=== PATIENT | female | born 1960 | race Caucasian/White ===

== ENCOUNTER 2024-07-10 14:19 | Outpatient (CLI) | payer OTHER, SELFPAY ==
--- NOTE | 2024-07-10 14:30 | MR_ITS ---
[address] [address] Phone:?[phone] Fax:?[phone] Referring Physician Information: Radha Stoll [address] [facility] [address] Phone:?[phone] Fax:?[phone] Patient:?Taryn Jimenez D.O.B:?1960 Sex:?Female Phone:?[phone] [facility] MRN:?[id number] Exam Date:?07/10/2024 EXAM: MRI of the RIGHT SHOULDER, without contrast CLINICAL INFORMATION: Female, 63 years old, with right shoulder pain. INDICATION: Evaluate for labral tear. PRIOR SURGERY: None reported. PLAIN FILMS: None available. COMPARISONS: No prior MRIs available. TECHNICAL INFORMATION: Using a 1.5T MR scanner and a localizing surface coil: coronal obliques: PD, T2, STIR sagittal obliques: PD, T2 axials: PD, T2 SEDATION: None CONTRAST: None FINDINGS: Bones: Proximal humerus: No fracture or marrow edema/pathology. No humeral Hill-Sachs or reverse Hill-Sachs lesion/impaction or contusion. Glenoid: No fracture or marrow edema/pathology. No osseous Bankart lesion. Rotator cuff and muscles/tendons: Supraspinatus: Mild-moderate infraspinatus tendinopathy with a 2.0 x 2.2 cm area of intermediate grade partial-thickness articular surface tearing. No full- thickness tear or muscle atrophy. Infraspinatus: No tendinopathy, tear or atrophy. Teres minor: No tendinopathy, tear or atrophy. Subscapularis: No tendinopathy, tear or atrophy. Deltoid: No strain or atrophy. Coracoacromial arch: Acromion morphology: The acromion has type II morphology. No discrete subacromial osseous spur or os acromiale. Acromiohumeral space: The acromiohumeral space measures 5.6 mm at its narrowest point (osseous distance). Coracohumeral space: The coracohumeral space is within normal limits. Acromioclavicular joint: Joint: Mild AC joint arthropathy, which encroaches upon the underlying supraspinatus (coronal T2 series 7 image 12). Ligaments: Coracoclavicular ligaments are intact. Bursae: Subacromial-subdeltoid: Mild-moderate subacromial-subdeltoid bursal thickening/edema. Subcoracoid: No convincing subcoracoid bursal thickening/bursitis. Biceps tendon: The long head of the biceps tendon is present within the bicipital groove. The intra-articular and extra-articular segments are intact without tendinosis, tenosynovitis, or displacement. Glenohumeral joint: Effusion/cyst: No significant glenohumeral joint effusion. Articular cartilage: Humeral head: No osteochondral abnormalities. Glenoid: No osteochondral abnormalities. Loose bodies: No discrete intra-articular body within the joint. Labrum:?No discrete labral tear or paralabral cyst identified on this non- arthrographic study. Inferior glenohumeral ligament/axillary pouch:?Mild-moderate thickening of inferior capsuloligamentous structures (coronal PD series 6 images 13-18). Additionally, there is soft tissue thickening throughout the rotator interval (sagittal PD series 8 images 8-13). IMPRESSION: 1. Mild-moderate infraspinatus tendinopathy with a 2.0 x 2.2 cm area of intermediate grade partial-thickness articular surface tearing. 2. Mild narrowing of the acromiohumeral space with mild-moderate subacromial subdeltoid bursal inflammation. Additionally, there is mild AC joint arthropathy, which encroaches upon the underlying supraspinatus. 3. Findings in keeping with any clinical symptoms of adhesive capsulitis. 4. No labral tear or paralabral cyst. 5. No full-thickness chondral defect or evidence of glenohumeral joint osteoarthritis. 6. No tendinopathy, displacement, or tear of the biceps long head tendon. BC Electronically signed on 07/11/2024 8:19:00 AM by Clem Nichols M.D.
== END 2024-07-10 14:20 | disposition home or self-care (01) ==
LOC: MRI 14:20
PROVIDERS: PCP Physician Assistant; Visit Provider Physician Assistant
DX: M25.511 Pain in right shoulder (principal); S46.911A Strain of unspecified muscle, fascia and tendon at shoulder and upper arm level, right arm, initial encounter; M75.21 Bicipital tendinitis, right shoulder; M75.01 Adhesive capsulitis of right shoulder
CPT/HCPCS: 73221

== ENCOUNTER 2025-05-14 07:40 | Day surgery (SDC) | payer MEDICARE, BC, SELFPAY ==
[2025-05-14] VITALS (13 sets, daily range): BP systolic 92–138; BP diastolic 52–82; PULSE 68–91; RESP 12–20; TEMP 36.2–36.9; O2SAT 91–97; BMI 30.4
[2025-05-14] MEDS: SODIUM CHLORIDE 0.9 % (FLUSH) 10 ML SYRINGE IVF (08:22)
[2025-05-14] MEDS: LACTATED RINGERS 1000 ML 1,000 ML 100 ML IV (08:23)
[2025-05-14] MEDS: CELECOXIB 200 MG CAPSULE PO (08:45)
[2025-05-14] MEDS: ACETAMINOPHEN 500 MG TABLET 1000 MG PO (08:45)
[2025-05-14] MEDS: MIDAZOLAM HCL 1 MG/ML inj IVP (08:55)
--- NOTE | 2025-05-14 09:04 | SUR.PREOP ---
TIME?OUT:?0850, right shoulder PT/RN/MDA?VERIFICATION?OF?SURGICAL?SITE,?PROCEDURE,?AND?CONSENT OBTAINED?PRIOR?TO?INVASIVE?PROCEDURE.
--- NOTE | 2025-05-14 09:20 | W.PM.NB ---
Nerve Block Nerve Block Time Seen by Provider: 09:00 Date Seen: 05/14/25 Type of block requested by surgeon for post-operative analgesia: supraclavicular Side: right Time out performed: Yes Verification of patient name: Yes Verification of date of : Yes Site marking: site marked Name of person performing procedure: Sky Continuous monitoring Was continuous monitoring of O2 sat, B/P, senior health educator, recorded every 15 minutes?: Yes Procedure Checklist: sterile prep, needles and gloves Ultrasound guided. Images saved: Yes Medications given in 5ml increments after negative aspiration: Ropivicaine %: 0.5 mL: 20 Needle gauge: 22 Precedex (mcg): 25 Patient tolerated procedure well: Yes Block Charges Block Charge (with Pro Fee): Brachial Plexus Use of Ultrasound Machine for Block: Yes- US Guidance/pain block
--- NOTE | 2025-05-14 10:54 | P.ANES_ITS ---
Anesthesia Charges Start Date/Time Anesthesia Start Date: 05/14/25 Anesthesia Start Time: 09:04 Stop Date/Time Anesthesia Stop Date: 05/14/25 Anesthesia Stop Time: 11:58 Coding CPT Codes CPT Codes: ANESTH SURGERY OF SHOULDER - 59204 ([id number]) P2 - PATIENT W/MILD SYST DISEASE, QK - SPORTS PHYSICAL THERAPIST 2-4 CNCRNT ANES PROC, QX - SILVICULTURE PROFESSOR SVC W/ MD MED DIRECTION
--- NOTE | 2025-05-14 10:54 | W.ANESCHARGE ---
Anesthesia Charges Start Date/Time Anesthesia Start Date: 05/14/25 Anesthesia Start Time: 09:04 Stop Date/Time Anesthesia Stop Date: 05/14/25 Anesthesia Stop Time: 11:58 Coding CPT Codes CPT Codes: ANESTH SURGERY OF SHOULDER - 73006 ([id number]) P2 - PATIENT W/MILD SYST DISEASE, QK - [place] MACHINE OPERATOR 2-4 CNCRNT ANES PROC, QX - WEED CONTROL INSPECTOR SVC W/ MD MED DIRECTION
--- NOTE | 2025-05-14 10:59 | P.ORPRC_ITS ---
Procedure Note Date of procedure: 05/14/25 Procedure: PREOPERATIVE DIAGNOSIS: Right shoulder rotator cuff tear, AC joint arthrosis POSTOPERATIVE DIAGNOSIS: Right shoulder rotator cuff tear, AC joint arthrosis, labral tearing NAME OF OPERATION: Right shoulder arthroscopic limited glenohumeral joint debridement, subacromial decompression, distal clavicle excision, mini open rotator cuff repair SURGEON: Randy Dunham MD EMOTIONALLY IMPAIRED TEACHER: KURTIS Rajan ANESTHESIA: Supraclavicular block plus general endotracheal ESTIMATED BLOOD LOSS: 5 mL COMPLICATIONS: None SPECIMENS: None DRAINS: None PREOPERATIVE ANTIBIOTICS: Ancef 2 grams INDICATIONS: The patient is a 64-year-old with a history of right shoulder pain secondary to the above diagnoses. Despite appropriate non operative management, they continue to have symptoms. Operative intervention was recommended. The risks, benefits and expected outcomes were discussed in detail. These included but were not limited to: Infection, bleeding, injury to blood vessel or nerve, venous thromboembolism. All questions were answered to their satisfaction. PROCEDURE: A supraclavicular block was placed by Anesthesia. General anesthesia was administered. The patient was placed in the high beach chair position. The right shoulder was prepped and draped in the usual sterile fashion. The glenohumeral joint was infiltrated with 20 mL of normal saline with epinephrine. The posterior portal was established, the arthroscope was introduced. The anterior portal was established, Diagnostic arthroscopy was performed with findings as follows: The biceps and biceps anchor are intact. The anterior, posterior and superior labrum show age-appropriate degenerative tearing. Articular surfaces on the humeral head and glenoid are normal. There are no loose bodies. There is a high-grade partial-thickness tear of the supraspinatus. The shaver was used to debride superior and anterior labrum. The arthroscope was placed in the subacromial space, the lateral portal was established. The Arthrex [place] was used to dissect the acromion free. The CA ligament was recessed off the anterior acromion, the AC joint was exposed. The acromioplasty was performed with the bur in the posterior portal. The bur was then placed in the lateral portal and the lateral and anterior aspect of the acromion were resected. The undersurface of the distal clavicle was resected through the lateral portal. Finally, the bur was placed in the anterior portal and the remainder of the distal clavicle was resected for a total of 10 mm. An accessory anterolateral portal was placed. The subacromial/subdeltoid bursa was aggressively debrided. The bursal surface of the supraspinatus is intact. Arthroscopic instruments were removed. The accessory anterolateral portal was extended proximally and distally, subcutaneous dissection was taken with electrocautery to the deltoid. The deltoid was divided in line with its fibers. The static retractor was placed. The subacromial/subdeltoid bursa was debrided with the Gomez scissors. The few remaining bursal surface fibers of the supraspinatus were released with the 15 blade, creating a small full-thickness tear of the supraspinatus. The greater tuberosity was debrided to punctate bleeding bone using the Lempert rongeur and the arthroscopic bur. A single Arthrex BioComposite SwiveLock anchor was placed just off the articular surface. Both limbs of the FiberWire and fiber tape were passed using the scorpion. A fiber link was placed in the leading edge of the rotator cuff x2. We then proceeded with a lateral SwiveLock anchor incorporating the FiberTape and fiber links. Finally, we tied the 2 central FiberWire sutures over the rotator cuff. Suture on the eyelet of the lateral row anchor was passed through the leading edge of the rotator cuff and tied over the top, creating a simple suture. This provides an anatomic, watertight repair of the rotator cuff. There is no tension on the repair with the shoulder at 0? abduction. The wound was irrigated with normal saline off the pump. The deltoid was repaired with an 0 Vicryl in an interrupted [id number] fashion. Subcutaneous tissues were closed with a 3-0 Vicryl. Skin was closed with a 3-0 Monocryl in a subcuticular fashion. A dry dressing and sling were applied. Sponge and needle counts were correct x2. The patient tolerated the procedure well. There were no apparent complications. They were carefully transferred to the hospital bed and taken to the postanesthesia care unit in satisfactory condition. PLAN: The patient will be discharged to home. No active range of motion of the shoulder will be allowed for 6 weeks postoperatively. They can work on active range of motion of the elbow, wrist and fingers. They will follow up in the office next week for a wound check and an AP and transscapular Y-view of the shoulder prior to being seen.
--- NOTE | 2025-05-14 11:00 | P.ANES_ITS ---
Anesthesia Charges Start Date/Time Anesthesia Start Date: 05/14/25 Anesthesia Start Time: 09:04 Stop Date/Time Anesthesia Stop Date: 05/14/25 Anesthesia Stop Time: 11:58 Coding CPT Codes CPT Codes: ANESTH SURGERY OF SHOULDER - 51043 ([id number]) P2 - PATIENT W/MILD SYST DISEASE, QK - AUTOMATION AND CONTROL ENGINEER 2-4 CNCRNT ANES PROC, QX - PRODUCTION TRUCK DRIVER SVC W/ MD MED DIRECTION
--- NOTE | 2025-05-14 11:00 | W.ANESCHARGE ---
Anesthesia Charges Start Date/Time Anesthesia Start Date: 05/14/25 Anesthesia Start Time: 09:04 Stop Date/Time Anesthesia Stop Date: 05/14/25 Anesthesia Stop Time: 11:58 Coding CPT Codes CPT Codes: ANESTH SURGERY OF SHOULDER - 97664 ([id number]) P2 - PATIENT W/MILD SYST DISEASE, QK - SEED CLEANING MANAGER 2-4 CNCRNT ANES PROC, QX - COMMERCIAL BAKER HELPER SVC W/ MD MED DIRECTION
[2025-05-14] MEDS: LACTATED RINGERS 500 ML 500 ML 100 ML IV (12:13)
== END 2025-05-14 13:01 | disposition home or self-care (01) ==
PROVIDERS: PCP Student in an Organized Health Care Education/Training Program; Visit Provider Orthopaedic Surgery
PROC: (CPT 23412; principal; 2025-05-14 09:30)
DX: M75.101 Unspecified rotator cuff tear or rupture of right shoulder, not specified as traumatic (principal); M19.011 Primary osteoarthritis, right shoulder; S43.431A Superior glenoid labrum lesion of right shoulder, initial encounter; G89.18 Other acute postprocedural pain
CPT/HCPCS: 29826; 29824; 29822; 23412; 01630; 64415; 76942; A9270; C1713; J0330; J1100; J2250; J2371; J2405; J2704; J2795; J3010; J3490; J7120